=== PATIENT | male | born 1975 | race Caucasian/White ===

== ENCOUNTER 2017-06-29 18:27 | Emergency (ER) | payer SELFPAY ==
[2017-06-29 18:36] VITALS: BP 167/95; PULSE 99; RESP 18; TEMP 99.1; O2SAT 99
--- NOTE | 2017-06-29 19:39 | C.PDOC ---
History Of Present Illness Patient is a 42 year old male who presents to the ED stating he smoked some PCP and now has chest discomfort. Upon arrival patient denies any chest pain, suicidal ideation, or homicidal ideation. States he wants to go home. Refuses to have blood work. Time Seen by Provider: 06/29/17 19:38 Chief Complaint (Nursing): Substance Abuse History Per: Patient History/Exam Limitations: no limitations Onset/Duration Of Symptoms: Hrs Current Symptoms Are (Timing): Gone Suicide/Self Injury Attempted (Context): None Modifying Factor(s): Other (PCP) Severity: Moderate Pain Scale Rating Of: 4 Associated Symptoms: denies: Suicidal Thoughts Involuntary Hold By: None Recent travel outside of the [place]: No Additional History Per: EMS Past Medical History Reviewed: Historical Data, Nursing Documentation, Vital Signs Vital Signs: Last Vital Signs Temp 99.1 F 06/29/17 18:30 Pulse 99 H 06/29/17 18:30 Resp 18 06/29/17 18:30 BP 167/95 H 06/29/17 18:30 Pulse Ox 99 06/29/17 20:19 - Medical History PMH: HTN Surgical History: Appendectomy Family History: States: No Known Family Hx - Social History Hx Tobacco Use: Yes Hx Alcohol Use: Yes Hx Substance Use: Yes (PCP, marijuana) - Immunization History Hx Tetanus Toxoid Vaccination: No Hx Influenza Vaccination: No Hx Pneumococcal Vaccination: No Review Of Systems Constitutional: Negative for: Fever, Chills Cardiovascular: Positive for: Chest Pain (gone now) Respiratory: Negative for: Shortness of Breath Gastrointestinal: Negative for: Nausea, Vomiting Neurological: Negative for: Weakness Psych: Negative for: Anxiety Physical Exam - Physical Exam Appears: Non-toxic, No Acute Distress Skin: Warm, Dry Head: Normacephalic Eye(s): bilateral: Normal Inspection Oral Mucosa: Moist Neck: Trachea Midline, Supple Chest: Symmetrical Cardiovascular: Rhythm Regular Respiratory: No Rales, No Rhonchi, No Wheezing Gastrointestinal/Abdominal: Soft, No Tenderness, No Distention Back: Normal Inspection Extremity: Normal ROM Extremity: Bilateral: Atraumatic Neurological/Psych: Oriented x3, Normal Speech Gait: Steady ED Course And Treatment ECG: Interpreted By Me, Viewed By Me ECG Rhythm: Sinus Rhythm (94), Nonspecific Changes O2 Sat by Pulse Oximetry: 99 Pulse Ox Interpretation: Normal Progress Note: Patient ambulating without any difficulty. States if he has any chest pain he will return to ED. Reevaluation Time: 20:23 Reassessment Condition: Improved Disposition Counseled Patient/Family Regarding: Studies Performed, Diagnosis, Need For Followup - Disposition Referrals: [facility] [Outside] Disposition: HOME/ ROUTINE Disposition Time: 19:38 Condition: FAIR Instructions: Polysubstance Abuse (ED) Forms: [employer] (Filipino) - Clinical Impression Clinical Impression: Polysubstance abuse - Scribe Statement The provider has reviewed the documentation as recorded by the Scribe (Ashley Ewing) Provider Attestation: All medical record entries made by the Scribe were at my direction and personally dictated by me. I have reviewed the chart and agree that the record accurately reflects my personal performance of the history, physical exam, medical decision making, and the department course for this patient. I have also personally directed, reviewed, and agree with the discharge instructions and disposition.
== END 2017-06-29 20:00 | disposition home or self-care (01) ==
LOC: C.ER 18:27
DX: F19.10 Other psychoactive substance abuse, uncomplicated (principal)

== ENCOUNTER 2018-10-01 12:33 | Emergency (ER) | payer SELFPAY ==
[2018-10-01 12:46] VITALS: BP 157/100; PULSE 104; RESP 18; TEMP 99; O2SAT 95
[2018-10-01] MEDS ORDERED: Iohexol 240 (50 ml) PO ONE (13:09)
[2018-10-01] MEDS ORDERED: Iodixanol 320 MG/ML 100 ML BOTTLE IV ONE (13:24)
[2018-10-01 13:29] LABS: BASO # 0.1 K/uL (0.0-0.2); BASO % 0.9 % (0.0-2.0); EOS # 0.2 K/uL (0.0-0.7); EOS % 2.1 % (0.0-4.0); HEMOGLOBIN 15.3 g/dL (12.0-18.0); LYMPH % 24.8 % (20.0-40.0); MEAN CELL VOLUME 91.9 fL (80.0-94.0); MEAN CORPUSCULAR HEMOGLOBIN 32.5 pg (27.0-31.0); MEAN CORPUSCULAR HGB CONC 35.3 g/dL (33.0-37.0); MEAN PLATELET VOLUME 7.5 fL (7.2-11.7); MONO # 0.7 K/uL (0.0-0.8); MONO % 8.4 % (0.0-10.0); NEUT # 5.2 K/uL (1.8-7.0); NEUT % 63.8 % (50.0-75.0); NRBC % 0.1 % (0.0-2.0); RBC 4.71 Mil/uL (4.40-5.90); RED CELL DISTRIBUTION WIDTH 12.8 % (11.5-14.5); WHITE BLOOD COUNT 8.2 K/uL (4.8-10.8)
[2018-10-01] MEDS ORDERED: Iohexol 240 (50 ml) ONE (13:32)
[2018-10-01 13:40] LABS: ALB/GLOB RATIO 1.3 (1.0-2.1); ALBUMIN 4.7 g/dL (3.5-5.0); ALT/SGPT 41 U/L (21-72); AST/SGOT 44 U/L (17-59); BLOOD UREA NITROGEN 18 mg/dL (9-20); CALCIUM 9.9 mg/dl (8.6-10.4); GFR NON-AFRICAN AMERICAN > 60
--- NOTE | 2018-10-01 14:26 | C.PDOC ---
History Of Present Illness 43-year-old male presents to the ED for evaluation of swelling to right testicle for one month. Patient states that over the past month, his right testicle has become progressively bigger in size. Patient reports a lot of pressure and tenderness with touching the area. He rates the pain 6/10 in severity and denies use of any pain medications. Patient denies known trauma to the area, penile discharge, rash, fever, chills, nausea, vomiting, dysuria, hematuria, urinary/bowel incontinence, history of hernia or BPH. Chief Complaint (Nursing): Male Genitourinary History Per: Patient History/Exam Limitations: no limitations Onset/Duration Of Symptoms: Other (one month ) Current Symptoms Are (Timing): Still Present Quality Of Discomfort: "Pain" Associated Symptoms: denies: Fever, Chills, Nausea, Vomiting, Urinary Symptoms Past Medical History Reviewed: Historical Data, Nursing Documentation, Vital Signs Vital Signs: Last Vital Signs Temp 99 F 10/01/18 12:43 Pulse 104 H 10/01/18 12:43 Resp 18 10/01/18 12:43 BP 157/100 H 10/01/18 12:43 Pulse Ox 95 10/01/18 12:43 - Medical History PMH: HTN Surgical History: Appendectomy Family History: States: Unknown Family Hx - Social History Hx Tobacco Use: Yes Hx Alcohol Use: Yes Hx Substance Use: No - Immunization History Hx Tetanus Toxoid Vaccination: No Hx Influenza Vaccination: No Hx Pneumococcal Vaccination: No Review Of Systems Constitutional: Negative for: Fever, Chills Gastrointestinal: Negative for: Nausea, Vomiting Genitourinary: Positive for: Other (right testicular pain ). Negative for: Dysuria, Incontinence, Hematuria Skin: Negative for: Rash Physical Exam - Physical Exam Appears: Non-toxic, No Acute Distress Skin: Normal Color, Warm, Dry Head: Atraumatic, Normacephalic Gastrointestinal/Abdominal: Soft, No Tenderness, No Guarding, No Rebound, Other (linear surgical scar to right lower quadrant s/p appendectomy ) Male Genital: Other (right testicle: soft-ball (approximate) sized area that is very edematous, firm and tender to palpation. no erythema, penile discharge or rash noted) Extremity: Normal ROM, Capillary Refill (less than 2 seconds ) Neurological/Psych: Oriented x3, Normal Speech, Normal Cognition ED Course And Treatment - Laboratory Results Result Diagrams: 05/12/19 13:20 10/01/18 13:20 Lab Results: Total Bilirubin 0.4 mg/dL (0.2-1.3) 10/01/18 13:20 AST 44 U/L (17-59) 10/01/18 13:20 ALT 41 U/L (21-72) 10/01/18 13:20 Alkaline Phosphatase 97 U/L (38-126) 10/01/18 13:20 Total Protein 8.4 g/dL (6.3-8.3) H 10/01/18 13:20 Albumin 4.7 g/dL (3.5-5.0) 10/01/18 13:20 Globulin 3.7 gm/dL (2.2-3.9) 10/01/18 13:20 Albumin/Globulin Ratio 1.3 (1.0-2.1) 10/01/18 13:20 O2 Sat by Pulse Oximetry: 95 (on RA ) Pulse Ox Interpretation: Normal - Other Rad testicular ultrasound X-Ray: Viewed By Me, Read By Radiologist Interpretation: Accession No. : [id number]. Patient Name / ID : OREN LEOS / [id number]. Exam Date : 10/01/2018 13:54:08 ( Approved ). Study Comment : Sex / Age : M / 43Y. Creator : Thiago Tapia MD. Dictator : Thiago Tapia MD. Rubber Ball Finisher : Machine Installer : Thiago Tapia MD. Approver2 : Report Date : 10/01/2018 15:28:06. My Comment : . Date of service: 10/01/2018. HISTORY: Swollen right testicle. TECHNIQUE: Realtime sonography through the scrotum with color and doppler flow. COMPARISON: None Available. FINDINGS: RIGHT TESTICLE: Measures 5.0 x 2.6 x 2.8 cm. Normal echotexture and flow. RIGHT EPIDIDYMIS: Not visualized. LEFT TESTICLE: Measures 4.6 x 2.1 x 2.6 cm. Normal echotexture and flow. LEFT EPIDIDYMIS: Epididymal head measures 1.1 x 0.84 x 1.0 cm. Grossly unremarkable appearance with normal. There is a tiny epididymal cyst- spermatocele which measures approximately 2.6 x 1.8 x 2.7 mm. HYDROCELE: Large right-sided hydrocele and smaller left-sided. VARICOCELE: None. OTHER F INDINGS: None. IMPRESSION: Bilateral hydroceles right larger than left. Probable tiny left epididymal cyst. Nonvisualization of the right epididymis. - CT Scan/US abd/plevis Other Rad Studies (CT/US): Read By Radiologist, Radiology Report Reviewed CT/US Interpretation: Accession No. : [id number]. Patient Name / ID : OREN LEOS / [id number]. Exam Date : 10/01/2018 14:45:04 ( Approved ). Study Comment : Sex / Age : M / 43Y. Creator : Yari Schmitt. Dictator : Thiago Tapia MD. Rubber Ball Finisher : Machine Installer : Thiago Tapia MD. Approver2 : Report Date : 10/01/2018 14:55:23. My Comment : . Date of service: 10/01/2018. PROCEDURE: CT Abdomen and Pelvis with Oral contrast. HISTORY: r/o right inguinal hernia. Rule out right inguinal hernia. COMPARISON: None. TECHNIQUE: Contiguous axial images of the abdomen and pelvis. Oral contrast was administered. No IV contrast given. Coronal and S agittal reformats generated. Radiation dose: Total exam DLP = 1042.11 mGy-cm. This CT exam was performed using one or more of the following dose reduction techniques: Automated exposure control, adjustment of the mA and/or kV according to patient size, and/or use of iterative reconstruction technique. FINDINGS: LOWER THORAX: Tiny hiatal hernia. LIVER: Liver is mildly enlarged measuring nearly 19 cm in CC dimension. Mild diffuse fatty hepatic infiltration. No obvious hepatic mass collection or calcification. GALLBLADDER AND BILE DUCTS: Unremarkable. PANCREAS: Pancreas is minimally atrophic and fatty replaced. No obvious pancreatic mass collection or calcification. SPLEEN: Small splenule adjacent to the anterior main body of the spleen. ADRENALS: Slightly nodular appearing left adrenal gland. KIDNEYS AND URETERS: Kidneys demonstrate symmetric nephrograms. No evidence of nephrolithiasis or hydronephrosis. BLADDER: Grossly unremarkable. Urinary bladder is incompletely distended which in part accounts for slight thick-walled appearance. Muscular hypertrophy may c ontribute. Correlation with urinalysis to exclude cystitis. REPRODUCTIVE: Bilateral scrotal hydroceles right larger than left.. Small fat containing bilateral inguinal hernias. APPENDIX: Appendix not seen with complete certainty on this study however no radiographic evidence to suggest acute a ppendicitis. BOWEL: Evaluation of the bowel is slightly limited due to incomplete opacification. Stomach is partially distended with food debris liquid air and some contrast material. The visualized loops of small bowel exhibit normal contour and caliber. No evidence of acute mechanical small bowel obstruction. Moderate amount of stool air seen throughout the large bowel suggesting mild fecal retention/constipation. PERITONEUM: Unremarkable. No fluid collection. No free air. Small bilateral fat containing inguinal hernias small fat containing umbilical hernia. LYMPH NODES: Unremarkable. No enlarged lymph nodes. VASCULATURE: Unremarkable. No aortic aneurysm. No aortic atherosclerotic calcification or mural plaque present. BONES: No fracture or destructive lesion. OTHER FINDINGS: None. IMPRESSION: Large right and smaller left-sided bilateral scrotal hydroceles.. Slightly nodular appearing adrenal glands. Small bilateral fat containing inguinal hernias. Mild hepatome nevaeh with fatty hepatic infiltration. Findings suggest mild fecal retention/constipation. Medical Decision Making Medical Decision Making: Impression: 43 year old male with right testicular swelling Plan: * Bloodwork * right testicle US * CT A/P * reassess and disposition Progress: Bloodwork, right testicular US, and CT A/P ordered and reviewed. Discussed results with patient and advised patient to follow up with Urology in 1-2 days Motrin as needed for pain Also encouraged patient to follow up in [facility] to establish primary care and to further evaluate CT findings patient verbalized understanding and is in agreement with plan patient is stable for discharge Disposition Counseled Patient/Family Regarding: Studies Performed, Diagnosis, Need For Followup, Rx Given - Disposition Referrals: Phillip Dooley MD [Staff Provider] - Trudy Dooley MD [Staff Provider] - [facility] [Outside] Disposition: HOME/ ROUTINE Disposition Time: 16:36 Condition: STABLE Additional Instructions: Motrin as needed for pain Follow up with Urology in 1-2 days Follow up in [facility] to establish primary care and to further evaluate CT findings Return to ED if symptoms worsen Ultrasound and CT scan reports given to you Prescriptions: Ibuprofen [Motrin] 600 mg PO Q8 PRN #30 tab PRN Reason: Pain, Moderate (4-7) Instructions: Hiatal Hernia, Groin Hernia (DC), Hydrocele/Varicocele (DC) Forms: [employer] (Irish), Work Excuse - Clinical Impression Clinical Impression: Testicular swelling, right, Hydrocele, bilateral, Inguinal hernia, bilateral, Hiatal hernia - PA / MANAGER CREDIT COLLECTIONS / Resident Statement MD/DO has reviewed & agrees with the documentation as recorded. - Scribe Statement The provider has reviewed the documentation as recorded by the Scribe (Natalie Washington) All medical record entries made by the Scribe were at my direction and personally dictated by me. I have reviewed the chart and agree that the record accurately reflects my personal performance of the history, physical exam, medical decision making, and the department course for this patient. I have also personally directed, reviewed, and agree with the discharge instructions and disposition.
--- NOTE | 2018-10-01 15:32 | US ---
Date of service: 10/01/2018 HISTORY: Swollen right testicle. TECHNIQUE: Realtime sonography through the scrotum with color and doppler flow. COMPARISON: None Available. FINDINGS: RIGHT TESTICLE: Measures 5.0 x 2.6 x 2.8 cm. Normal echotexture and flow. RIGHT EPIDIDYMIS: Not visualized. LEFT TESTICLE: Measures 4.6 x 2.1 x 2.6 cm. Normal echotexture and flow. LEFT EPIDIDYMIS: Epididymal head measures 1.1 x 0.84 x 1.0 cm. Grossly unremarkable appearance with normal. There is a tiny epididymal cyst-spermatocele which measures approximately 2.6 x 1.8 x 2.7 mm. HYDROCELE: Large right-sided hydrocele and smaller left-sided. VARICOCELE: None. OTHER FINDINGS: None. IMPRESSION: Bilateral hydroceles right larger than left. Probable tiny left epididymal cyst. Nonvisualization of the right epididymis.
[2018-10-01 15:35] LABS: URINE BILIRUBIN NEGATIVE (NEGATIVE); URINE BLOOD NEGATIVE (NEGATIVE); URINE CLARITY Hazy (Clear); URINE COLOR Yellow (YELLOW); URINE GLUCOSE (UA) 3+ mg/dL (Normal); URINE LEUKOCYTE ESTERASE NEG Leu/uL (Negative); URINE PROTEIN NEGATIVE (NEGATIVE); URINE URIC ACID CRYSTALS OCC /hpf (<OCC); URINE UROBILINOGEN NORMAL mg/dL (0.2-1.0)
--- NOTE | 2018-10-01 16:31 | CT ---
Date of service: 10/01/2018 PROCEDURE: CT Abdomen and Pelvis with Oral contrast. HISTORY: r/o right inguinal hernia Rule out right inguinal hernia COMPARISON: None. TECHNIQUE: Contiguous axial images of the abdomen and pelvis. Oral contrast was administered. No IV contrast given. Coronal and Sagittal reformats generated. Radiation dose: Total exam DLP = 1042.11 mGy-cm. This CT exam was performed using one or more of the following dose reduction techniques: Automated exposure control, adjustment of the mA and/or kV according to patient size, and/or use of iterative reconstruction technique. FINDINGS: LOWER THORAX: Tiny hiatal hernia. LIVER: Liver is mildly enlarged measuring nearly 19 cm in CC dimension. Mild diffuse fatty hepatic infiltration. No obvious hepatic mass collection or calcification. GALLBLADDER AND BILE DUCTS: Unremarkable. PANCREAS: Pancreas is minimally atrophic and fatty replaced. No obvious pancreatic mass collection or calcification. SPLEEN: Small splenule adjacent to the anterior main body of the spleen. ADRENALS: Slightly nodular appearing left adrenal gland. KIDNEYS AND URETERS: Kidneys demonstrate symmetric nephrograms. No evidence of nephrolithiasis or hydronephrosis. BLADDER: Grossly unremarkable. Urinary bladder is incompletely distended which in part accounts for slight thick-walled appearance. Muscular hypertrophy may contribute. Correlation with urinalysis to exclude cystitis. REPRODUCTIVE: Bilateral scrotal hydroceles right larger than left.. Small fat containing bilateral inguinal hernias APPENDIX: Appendix not seen with complete certainty on this study however no radiographic evidence to suggest acute appendicitis. BOWEL: Evaluation of the bowel is slightly limited due to incomplete opacification. Stomach is partially distended with food debris liquid air and some contrast material. The visualized loops of small bowel exhibit normal contour and caliber. No evidence of acute mechanical small bowel obstruction. Moderate amount of stool air seen throughout the large bowel suggesting mild fecal retention/constipation. PERITONEUM: Unremarkable. No fluid collection. No free air. Small bilateral fat containing inguinal hernias small fat containing umbilical hernia. LYMPH NODES: Unremarkable. No enlarged lymph nodes. VASCULATURE: Unremarkable. No aortic aneurysm. No aortic atherosclerotic calcification or mural plaque present. BONES: No fracture or destructive lesion. OTHER FINDINGS: None. IMPRESSION: Large right and smaller left-sided bilateral scrotal hydroceles.. Slightly nodular appearing adrenal glands. Small bilateral fat containing inguinal hernias. Mild hepatomegaly with fatty hepatic infiltration. Findings suggest mild fecal retention/constipation.
== END 2018-10-01 16:49 | disposition home or self-care (01) ==
LOC: C.ER 12:33
DX: N43.3 Hydrocele, unspecified (principal); K40.20 Bilateral inguinal hernia, without obstruction or gangrene, not specified as recurrent; K44.9 Diaphragmatic hernia without obstruction or gangrene; N50.89 Other specified disorders of the male genital organs
CPT/HCPCS: 74177; 76870; 80053; 81001; 85025; 99283; Q9967